=== PATIENT | male | born 1955 | race African-American/Black ===

== ENCOUNTER 2016-03-20 07:30 | Day surgery (SDC) | payer MEDICARE ==
[2016-03-20 08:47] LABS: Basophils % (Auto) 1.1 % (0.0-1.8); Eosinophils % (Auto) 11.6 % (0.0-4.3); Hematocrit 31.2 % (35.5-45.6); Hemoglobin 10.3 gm/dl (11.8-15.2); Mean Corpuscular HGB Conc 33 % (32-34); Mean Corpuscular Hemoglobin 29 pg (28-32); Mean Corpuscular Volume 88 fl (84-94); Platelet Count 198 K/mm3 (140-440); Red Blood Count 3.56 M/mm3 (3.65-5.03); Red Cell Distribution Width 15.1 % (13.2-15.2); White Blood Count 7.5 K/mm3 (4.5-11.0)
[2016-03-20 08:58] LABS: INR 0.97 (0.87-1.13)
[2016-03-20] MEDS ORDERED: NACL 0.9% 500 ML 500 ML IV SCH (09:00)
[2016-03-20 09:12] LABS: BUN/Creatinine Ratio 8.12; Calcium 8.9 mg/dL (8.4-10.2); Potassium 4.2 mmol/L (3.6-5.0)
[2016-03-20] MEDS ORDERED: SUBLIMAZE ONE (09:25)
[2016-03-20] MEDS ORDERED: NITROGLYCERIN SYRINGE 3 ML ONE (09:43)
[2016-03-20] MEDS: CALAN ONE ×2 (09:52→10:00)
[2016-03-20] MEDS: VERSED ONE ×2 (09:53→09:55)
[2016-03-20] MEDS: HEPARIN 10,000 UNITS/10 ML ONE ×2 (09:55→10:00)
[2016-03-20] MEDS: XYLOCAINE 2% INFILTRATI ONE ×2 (09:56→09:58)
[2016-03-20] MEDS: HEPARIN/NS 5000 UNIT/500ML(CATH LAB) 1,000 ML IR ONE ×2 (09:57→10:00)
--- NOTE | 2016-03-20 13:23 | Short Stay Summary ---
Short Stay Documentation Date of service: 03/20/16 - History H&P: obtained from office - Allergies and Medications Current Medications: Allergies pentazocine lactate [From [facility]] Allergy (Verified 03/20/16 08:07) Unknown morphine Adverse Reaction (Verified 03/20/16 08:07) Itching Home Medications Medication Instructions Recorded Confirmed Last Taken Type Allopurinol [Zyloprim] 300 mg PO QDAY 03/20/16 03/20/16 03/20/16 06:00 History Aspirin [Aspirin TAB] 325 mg PO QDAY 03/20/16 03/20/16 03/20/16 06:00 History Carvedilol [Coreg] 6.25 mg PO BID 03/20/16 03/20/16 03/20/16 06:00 History Clopidogrel Bisulfate [Plavix] 75 mg PO DAILY 03/20/16 03/20/16 03/20/16 06:00 History Gabapentin [Neurontin] 800 mg PO BID 03/20/16 03/20/16 03/20/16 History Levothyroxine [Synthroid] 75 mcg PO QAM 03/20/16 03/20/16 03/20/16 06:00 History Meclizine [Antivert] 25 mg PO TID PRN 03/20/16 03/20/16 2 Days Ago History Oxycodone HCl/Acetaminophen 1 each PO Q6HR PRN 03/20/16 03/20/16 03/20/16 06:00 History [Percocet 10/325 mg] Simvastatin [Zocor TAB] 80 mg PO QHS 03/20/16 03/20/16 03/19/16 History fentaNYL [fentaNYL] 1 patch TP Q72HR 03/20/16 03/20/16 03/20/16 06:00 History Active Medications Sodium Chloride (Nacl 0.9% 500 Ml) 500 mls @ 50 mls/hr IV DIRECT LEROY - Physical exam General appearance: no acute distress Integumentary: no rash HEENT: Atraumatic Lungs: Clear to auscultation Breasts: deferred Heart: Regular rate Gastrointestinal: normal Male Genitourinary: deferred Female Genitourinary: deferred Rectal Exam: deferred Extremities: no ischemia Neurological: Normal gait - Brief post op/procedure progress note Date of procedure: 03/20/16 Pre-op diagnosis: Abnormal MPI Post-op diagnosis: same Procedure: [facility] Anesthesia: MAC Findings: See report Surgeon: JC NOLASCO Estimated blood loss: none Pathology: none Condition: stable - Hospital course Hospital course: Uneventful - Disposition Condition at discharge: Good Disposition: DISCHARGED TO HOME OR SELFCARE Short Stay Discharge Plan Activity: advance as tolerated Weight Bearing Status: Partial Weight Bearing Diet: low fat, low cholesterol, low salt Follow up with: HETAL SERRATO MD, PHD [Primary Care Provider] - 7 Days
[2016-03-20 13:45] VITALS: BP 138/76
--- NOTE | 2016-03-20 15:00 | Cardiac Catherization Report ---
LEFT HEART CATHETERIZATION ORDERING PHYSICIAN: Geovanny Cid MD INDICATION FOR PROCEDURE: High risk myocardial perfusion scan, preoperative cardiac clearance. PROCEDURES PERFORMED: Selective left and right coronary angiography, left ventriculography was not performed due to the patient's underlying renal insufficiency. DESCRIPTION OF PROCEDURE: After obtaining written consent, the patient was draped using sterile technique. A 2% lidocaine was injected into the right wrist. A 5-Uzbek vascular sheath was inserted into the right radial artery. A 5-Uzbek JL3.5 catheter was used to selectively engage the left coronary artery. A 5-Uzbek JR4 catheter was used to selectively engage the right coronary artery. A left ventriculogram was not performed due to the patient's underlying renal insufficiency with a GFR of 44. No complications occurred during the procedure. Hemostasis was achieved at the end of the procedure using manual pressure. ESTIMATED BLOOD LOSS: Minimal. SPECIMEN REMOVED: None. FINDINGS: HEMODYNAMICS: Aortic pressure is 125/65. Left ventricular systolic pressure is 118 mmHg and the left ventricular end-diastolic pressure was 17 mmHg. There was no significant gradient noted across the left ventricular outflow tract. CARDIAC STRUCTURES: The left ventriculogram was not performed due to the patient's underlying renal insufficiency with a GFR of 44%. CORONARY ANATOMY: 1. This is a right dominant circulation. 2. The left main is angiographically normal. 3. The left anterior descending artery has extensive calcifications noted in the proximal and mid segment. The left anterior descending artery has a 100% occlusion right distal to the takeoff of the explored second diagonal artery. There is a tubular extensive disease in the proximal and mid segment of the LAD with 50-70% luminal stenosis. There is a large diagonal artery. There is a proximal 90% focal stenosis of the first diagonal artery. The diagonal artery branches into 2 vessels. The superior branch has evidence of an ostial 90% stenosis. The inferior branch has evidence of a distal 90% stenosis. 5. The left circumflex artery has evidence of a 99% stenosis noted in the proximal segment of the second obtuse marginal. This is a subtotal vessel that is filling late. There is also a diffuse, complex 70-80% stenosis involving the distal circumflex artery. The circumflex artery is a small caliber vessel that is heavily diffusely diseased. 6. The right coronary artery is dominant. There is evidence of extensive proximal disease. There is a tubular stenosis extending from the ostium all the way into the mid right coronary artery with approximately 50-60% luminal obstruction. IMPRESSION: 1. Evidence of severe 3-vessel disease. 2. A 100% occlusion of the mid LAD. 3. A 90% focal stenosis of the large caliber first diagonal artery. 4. Subtotal occlusion of a moderate sized caliber second obtuse marginal. 5. A 70-80% complex and calcified stenosis of the [place] circumflex artery. 6. A 50-60% tubular stenosis of the proximal and mid right coronary artery. 7. Normal left ventricular filling pressures. RECOMMENDATIONS: The patient will be recommended for a viability study, followed by a cardiothoracic surgery evaluation for possible revascularization with coronary artery bypass grafting. JOB# [id number] MELLO/MOHINDER
== END 2016-03-20 13:50 | disposition home or self-care (01) ==
LOC: OPU 07:30
PROVIDERS: ATTEND Internal Medicine
DX: I25.10 Atherosclerotic heart disease of native coronary artery without angina pectoris (principal); E03.9 Hypothyroidism, unspecified; E78.5 Hyperlipidemia, unspecified; M13.88 Other specified arthritis, other site; M10.9 Gout, unspecified; I25.2 Old myocardial infarction; Z87.891 Personal history of nicotine dependence; Z82.49 Family history of ischemic heart disease and other diseases of the circulatory system
CPT/HCPCS: 36415; 80048; 85025; 85610; 85730; 93005; 93010; 93454; C1894; J1644; J2250; J3010; J7040; 93458; 96360; 96361; Q9967